=== PATIENT | female | born 1960 | race Caucasian/White ===

== ENCOUNTER 2025-04-12 18:40 | Inpatient (IN) | payer OTHER, MEDICARE, MEDICAID, SELFPAY ==
[2025-04-12] VITALS (8 sets, daily range): BP systolic 114–154; BP diastolic 61–90; PULSE 100–129; RESP 18–24; TEMP 36–36.5; O2SAT 87–96; BMI 41.5
--- NOTE | 2025-04-12 | ECG_ITS ---
Test Reason : PALPITATION Blood Pressure : */* mmHG Vent. Rate : 109 BPM Atrial Rate : 109 BPM P-R Int : 196 ms QRS Dur : 74 ms QT Int : 328 ms P-R-T Axes : 73 49 65 degrees QTcB Int : 441 ms Sinus tachycardia Otherwise normal ECG No previous ECGs available Referred By: Generic ED Physician Electronically Signed By: YANELI MORALES MD
--- NOTE | ~2025-04-12 | XR_ITS ---
CLINICAL HISTORY: SOB 1 view chest x-ray Comparison: None provided Findings: Bilateral pulmonary opacities are nonspecific and may reflect pulmonary edema and pneumonitis. Mild emphysematous changes noted. Borderline cardiomegaly accentuated by AP technique. No definite pneumothorax or pleural effusion with mild elevation of the left hemidiaphragm. Degenerative changes include imaged shoulders and imaged AC joints. IMPRESSION: Mild pulmonary edema and/or pneumonitis. This document has been electronically signed by: Sid Crook MD on 04/12/2025 21:24:32
--- NOTE | ~2025-04-12 | NM_ITS ---
EXAMINATION: NM LUNG PERFUSION HISTORY: elevated d dimer, r/o PE. TECHNIQUE: A pulmonary perfusion scan was performed following the intravenous administration of 4 mCi technetium 99m-MAA. Images were obtained in multiple projections. COMPARISON: Correlation is made with an AP portable view of the chest dated 04/12/2025. FINDINGS: There is global decreased activity in the mid and upper lung zones bilaterally, likely representing emphysema. No segmental or subsegmental perfusion defect is identified. Findings are consistent with a very low probability for pulmonary emboli. NM/NM pul perfusion IMPRESSION: Very low probability for pulmonary emboli. Electronically signed by: Omar Leigh MD 04/13/2025 11:05 AM EDT
--- NOTE | 2025-04-12 19:31 | ED_ITS ---
HPI - General Adult General Chief complaint: Arrhythmia/Palpitations Stated complaint: Anxiety, sob, heart palp, diff getting Rx filled Time Seen by Provider: 04/12/25 19:09 Source: patient Mode of arrival: EMS Limitations: no limitations History of Present Illness ED Provider: Yaniv Perdue PA-C HPI narrative: 64-year-old female with medical history of alcohol use disorder, COPD, HTN, anxiety, depression, PTSD presents to the ED today after experiencing panic attack. Patient says earlier this evening she was experiencing increased stress of her personal life stating that she is living at a [address], and is currently in [facility] which is a program associated with the [place] who was helping her with housing, and treatment for alcohol use disorder. Patient states she recently experienced a relapse drinking alcohol, and her program is placing her in a detox facility in [facility]. Patient said due to the stress she began crying and quickly went into panic attack, hyperventilating and experiencing numbness of the right side of her face. Patient states she drank 1 hour prior to arrival 3 nips of vodka. Patient denies any previous history of alcohol withdrawal seizures. Patient does report she is no longer experiencing numbness of her face, and anxiety is more under control at this time. Additionally, patient states she wanted to come in as she is out of her medication, did not take her hypertension medication today and did not have medication for anxiety today prompting her to seek care in the ED. Denies chest pain, shortness of breath, nausea, headaches, visual changes, abdominal pain, nausea, urinary symptoms, black/tarry stools, denies SI, HI, visual/auditory hallucinations MD complaint: anxiety, meds needed Related Data Allergies Allergy/AdvReac Type Severity Reaction Status Date / Time shellfish derived (shellfish) Allergy Severe Anaphylaxis Verified 04/12/25 18:55 Iodinated Contrast Media (IV Allergy Hives Verified 04/12/25 23:03 Contrast Dye) Review of Systems 2 Review of Systems: CONST: Negative for fever, body aches and chills. HENT: Negative for neck pain/stiffness, headache, congestion, sore throat, swelling. EYES: Negative for discharge/pain or vision changes. RESP: Negative for cough/hemoptysis and shortness of breath. CV: Negative chest pain, difficulty breathing, palpitations. ABD: Negative pain, nausea, vomiting. : Negative increase frequency, dysuria, blood in urine or stool. MUSC: Negative for muscle aches, edema. SKIN: Negative rash, lesions/sores. NEURO: Negative headache, dizziness, weakness. PSYCH: POS increased anxiety Yes all other systems are reviewed and are negative [facility] Past Medical History Attestation statement: The following information was validated with the patient. Source: old records reviewed and nursing notes reviewed Social History Social History Smoked in Last 30 Days: Yes Use of substances other than those prescribed or required for medical reasons: No Advance Directives: No Advance Directives Information Provided: No Do you have a plan to hurt others: No Plan Physical Exam ED Vital Signs: Vital Signs - 24 hr 04/12/25 18:48 04/12/25 19:42 04/12/25 20:05 Temperature 97.7 F Pulse Rate 110 H 107 H Respiratory Rate 18 20 Blood Pressure 134/62 128/72 132/61 Pulse Oximetry 91 L 90 L Oxygen Delivery Method Room Air Room Air 04/12/25 21:12 04/12/25 21:45 04/12/25 22:49 Temperature 96.8 F Pulse Rate 129 H 100 109 H Respiratory Rate 24 H 18 19 Blood Pressure 114/80 Pulse Oximetry 87 L 95 Oxygen Delivery Method Room Air Room Air 04/12/25 23:30 Temperature Pulse Rate Respiratory Rate 21 H Blood Pressure 146/81 H Pulse Oximetry 95 Oxygen Delivery Method Room Air BMI result Body Mass Index 41.5 GENERAL APPEARANCE: ?AxOx4, disheveled appearance, with alcohol odor on breath, no acute distress. HEENT: ?NC, AT. MMM. EOMI, clear conjunctiva, oropharynx clear. NECK: ?Supple without lymphadenopathy.? No stiffness or restricted ROM. HEART:? Tachycardic rate and regular rhythm, normal S1/S2, no m/r/g LUNGS:? CTAB, moving air well. Diminished breath sounds throughout lung freeman ABDOMEN: ?Soft, nontender, nondistended with good bowel sounds heard. EXTREMITIES: ?Without cyanosis, clubbing or edema. NEUROLOGICAL: ?Grossly nonfocal. Alert and oriented, moving all 4 extremities. Observed to ambulate with normal gait. Skin: ?Warm and dry without any rash. Course Reevaluation(s) Reevaluation #1: I Vangie Delarosa PA-C have accepted care of the patient and signed out pending labs, imaging and final disposition. We are initiating treatment for COPD exacerbation, the patient was ambulated, she was 86% on room air, she became profoundly tachycardic. Blood cultures, lactic we will be added. Due to new hypoxia and tachycardia, a dimer was ordered, as well as cardiac enzyme. Chest x-ray already complete. The patient is receiving updrafts, Solu-Medrol. We will be ordering ceftriaxone and azithromycin. Adding 2 g of magnesium as well. Dimer elevated, the patient is now bringing to our attention that she has a contrast dye allergy, she will have a V/Q scan tomorrow Reevaluation #2: At 10:10 p.m. on April 12, a sepsis focused exam was performed. Time: 22:10 Reevaluation #3: First lactic 3.3 we will obtain a 2nd Medications Administered Generic Name Dose Route Start Last Admin Trade Name Freq PRN Reason Stop Dose Admin Azithromycin 500 mg/ Sodium 250 mls @ 125 mls/hr 04/12/25 22:10 04/12/25 23:04 Chloride IV 04/13/25 00:09 125 mls/hr ONCE ONE Administration Discontinued Medications Generic Name Dose Route Start Last Admin Trade Name Freq PRN Reason Stop Dose Admin Amlodipine Besylate 5 mg 04/12/25 19:29 04/12/25 20:05 Amlodipine Besylate 5 Mg Tablet PO 04/12/25 19:30 5 mg ONCE ONE Administration Protocol Ceftriaxone Sodium 2 gm 04/12/25 22:10 04/12/25 22:18 Ceftriaxone Sodium 2 Gm Vial IVPUSH 04/12/25 22:11 2 gm ONCE ONE Administration Albuterol Sulfate 2.5 mg/ 0 mg 04/12/25 21:38 04/12/25 21:43 Albuterol/Ipratropium 3 ml INHALE 04/12/25 21:39 1 dose ONCE ONE Administration Diazepam 2 mg 04/12/25 19:29 04/12/25 20:20 Diazepam 2 Mg Tablet PO 04/12/25 19:30 2 mg ONCE ONE Administration Sodium Chloride 1,000 mls @ 999 mls/hr 04/12/25 22:15 04/12/25 22:28 Ns IV 04/12/25 23:15 999 mls/hr .Q1H1M MARGIE Administration Methylprednisolone Sodium Succinate 125 mg 04/12/25 21:22 04/12/25 21:57 Methylprednisolone Sod Succ 125 Mg/2 Ml Vial IVPUSH 04/12/25 21:23 125 mg ONCE ONE Administration Medical Decision Making Medical Decision Making MDM Narrative: 64-year-old female with medical history of alcohol use disorder, COPD, HTN, anxiety, depression, PTSD presents to the ED today after experiencing panic attack. Patient says earlier this evening she was experiencing increased stress of her personal life stating that she is living at a motel [address], and is currently in [facility] which is a program associated with the [place] who was helping her with housing, and treatment for alcohol use disorder. Patient states she recently experienced a relapse drinking alcohol, and her program is placing her in a detox facility in [facility]. Patient said due to the stress she began crying and quickly went into panic attack, hyperventilating and experiencing numbness of the right side of her face. Patient states she drank 1 hour prior to arrival 3 nips of vodka. Patient denies any previous history of alcohol withdrawal seizures. Patient does report she is no longer experiencing numbness of her face, and anxiety is more under control at this time. Additionally, patient states she wanted to come in as she is out of her medication, did not take her hypertension medication today and did not have medication for anxiety today prompting her to seek care in the ED. Denies SI, HI, auditory/visual hallucinations Patient normotensive 134/62, tachycardic at 110 beats per minute, respiratory rate of 18, 91% on room air, in no acute distress, nontoxic appearing. Physical exam benign, alert and oriented x3, cardiac exam with tachycardic rate, normal rhythm, no murmurs/rubs/gallops, lungs clear to auscultation bilaterally with some diminished breath sounds throughout lung freeman due to COPD. No focal neurological deficits, no speech slurring, no facial drooping, no loss of nasolabial fold, strength 5/5 of upper extremities, strength 5/5 of the lower extremities, face SILT. I do not believe patient isn't alcohol withdrawal, she is not tremulous, no headaches, no nausea vomiting, no diaphoresis, no visual/auditory/tactile hallucinations, sensorium is clear EKG shows tachycardic rate with normal rhythm, no ST-elevation/depression, T- wave abnormalities, initial troponin 7.2. Patient without chest pain. Patient states she had increased anxiety today due to being out of her medication, due to recent relapse of ETOH use, and her [place] program placing her in [place] rehab facility for alcohol use. Patient requesting hypertension medication, anxiety medication that she missed today. Will dose of 5 mg amlodipine, 2 mg diazepam for anxiety. Course 20:32- patient anxiety improved after medication, patient feels safe for discharge for home care. Patient states she has ride [facility]. ETOH level 221. Will obtain CXR to evaluate for cardiopulmonary processes. 21:11- I am considering sepsis at this time, patient ambulated with a tech, tech reported O2 saturation dropped to 86%, heart rate up to 129 while ambulating. Awaiting workup including D-dimer, lactic acid, blood cultures, delta trop, ED bronchial your protocol for possible COPD exacerbation. Patient being signed out to my colleague Sarah Delarosa PA-C who will resume care of this patient. Patient aware. Differential Diagnosis Differential Diagnoses: The differential diagnosis associated with the presentation includes ACS Panic attack Anxiety Depression Alcohol intoxication Alcohol withdrawal Admission/Observation Consideration of admission/observation: Escalation of care including admission/observation considered Lab Data MDM Lab Attestation statement: I reviewed the patient's lab results. 04/12/25 19:56 04/12/25 19:56 Labs: Lab Results 04/12/25 04/12/25 04/12/25 Range/Units 19:22 19:56 21:41 WBC 9.2 (4.8-10.8) X10*3/uL RBC 4.61 (4.20-5.50) X10*6/uL Hgb 14.8 (12.0-16.0) g/dl Hct 43.0 (37.0-47.0) % MCV 93.3 (80.0-98.0) fL MCH 32.1 (27.0-33.0) pg MCHC 34.4 (31.0-35.0) g/dl RDW 13.6 (11.0-16.0) % Plt Count 242 (160-400) X10*3/uL MPV 9.8 (9.4-12.3) fL Immature Gran % (Auto) 0.3 (0.0-0.4) % Neut % (Auto) 77.2 H (45-73) % Lymph % (Auto) 16.5 L (20-40) % [place] % (Auto) 5.4 (2-11) % Eos % (Auto) 0.2 (0-4) % Baso % (Auto) 0.4 (0-2) % Lymph # (Auto) 1.5 (1.2-4.9) X10*3/uL [place] # (Auto) 0.5 (0.1-1.2) X10*3/uL Eos # (Auto) 0.0 (0.0-0.4) X10*3/uL Baso # (Auto) 0.0 (0.0-0.2) X10*3/uL Abs Immat Gran (auto) 0.03 (0.00-0.03) X10*3/uL Absolute Neuts (auto) 7.1 (2.0-8.3) x10*3/uL Absolute Nucleated RBC 0.000 (0.0-0.012) X10*3/uL Nucleated RBC % (auto) 0.0 (0.0-0.2) /100WBC D-Dimer High Sensitivty NG/ML Sodium 143 (135-145) mmol/L Potassium 3.6 (3.3-5.1) mmol/L Chloride 104 (96-108) mmol/L Carbon Dioxide 25 (22-29) mmol/L Anion Gap 18 (12-20) BUN 9 (9-16) mg/dL Creatinine 0.59 (0.5-1.4) mg/dL Estim Creat Clear Calc 129.3 Estimated GFR > 60 Random Glucose 119 H (60-115) mg/dL Lactic Acid 3.3 H* (0.5-2.0) mmol/L Calcium 8.1 L (8.4-10.2) mg/dL Troponin I High Sens 7.2 (<3.5-17.0) ng/L Ethyl Alcohol 221 mg/dL Influenza Type A (PCR) (Negative) Influenza Type B (PCR) (Negative) RSV RNA Qual (PCR) (Negative) SARS-CoV-2 RNA (RT-PCR) (Negative) 04/12/25 04/12/25 Range/Units 22:01 22:31 WBC (4.8-10.8) X10*3/uL RBC (4.20-5.50) X10*6/uL Hgb (12.0-16.0) g/dl Hct (37.0-47.0) % MCV (80.0-98.0) fL MCH (27.0-33.0) pg MCHC (31.0-35.0) g/dl RDW (11.0-16.0) % Plt Count (160-400) X10*3/uL MPV (9.4-12.3) fL Immature Gran % (Auto) (0.0-0.4) % Neut % (Auto) (45-73) % Lymph % (Auto) (20-40) % [place] % (Auto) (2-11) % Eos % (Auto) (0-4) % Baso % (Auto) (0-2) % Lymph # (Auto) (1.2-4.9) X10*3/uL [place] # (Auto) (0.1-1.2) X10*3/uL Eos # (Auto) (0.0-0.4) X10*3/uL Baso # (Auto) (0.0-0.2) X10*3/uL Abs Immat Gran (auto) (0.00-0.03) X10*3/uL Absolute Neuts (auto) (2.0-8.3) x10*3/uL Absolute Nucleated RBC (0.0-0.012) X10*3/uL Nucleated RBC % (auto) (0.0-0.2) /100WBC D-Dimer High Sensitivty 312 NG/ML Sodium (135-145) mmol/L Potassium (3.3-5.1) mmol/L Chloride (96-108) mmol/L Carbon Dioxide (22-29) mmol/L Anion Gap (12-20) BUN (9-16) mg/dL Creatinine (0.5-1.4) mg/dL Estim Creat Clear Calc Estimated GFR Random Glucose (60-115) mg/dL Lactic Acid (0.5-2.0) mmol/L Calcium (8.4-10.2) mg/dL Troponin I High Sens 7.7 (<3.5-17.0) ng/L Ethyl Alcohol mg/dL Influenza Type A (PCR) NEGATIVE (Negative) Influenza Type B (PCR) NEGATIVE (Negative) RSV RNA Qual (PCR) NEGATIVE (Negative) SARS-CoV-2 RNA (RT-PCR) NEGATIVE (Negative) Independent Interpretation I performed an independent interpretation of an: EKG Interpretation: I independently interpreted the EKG as sinus tachycardia, no ST elevation/depression or T-wave abnormality Vent. Rate : 109 BPM Atrial Rate : 109 BPM P-R Int : 196 ms QRS Dur : 74 ms QT Int : 328 ms P-R-T Axes : 73 49 65 degrees QTcB Int : 441 ms Sinus tachycardia External Record Review External record reviewed: Inpatient record, Office record and Outpatient record Chronic Conditions Patient?s care impacted by: Hypertension and Other (Alcohol use disorder, COPD, PTSD, anxiety, depression) Discharge Plan Discharge Clinical Impression: Bronchitis, Hypoxia, Panic attack Patient Disposition: Admitted As Inpatient Print Language: Hungarian
[2025-04-12 19:48] LABS: Troponin-I High Sensitivity 7.2 ng/L (<3.5-17.0)
[2025-04-12 20:02] LABS: Hematocrit 43.0 % (37.0-47.0); Hemoglobin 14.8 g/dl (12.0-16.0); Imm Gran Abs Auto 0.03 X10*3/uL (0.00-0.03); Imm Gran Pct Auto 0.3 % (0.0-0.4); Lymphocytes Absolute Auto 1.5 X10*3/uL (1.2-4.9); Mean Corpuscular HGB Conc 34.4 g/dl (31.0-35.0); Mean Corpuscular Hemoglobin 32.1 pg (27.0-33.0); Mean Corpuscular Volume 93.3 fL (80.0-98.0); NRBC Abs Auto 0.000 X10*3/uL (0.0-0.012); NRBC Pct Auto 0.0 /100WBC (0.0-0.2); Platelet Count 242 X10*3/uL (160-400); Red Blood Count 4.61 X10*6/uL (4.20-5.50); White Blood Count 9.2 X10*3/uL (4.8-10.8)
[2025-04-12 20:15] LABS: Anion Gap 18 (12-20); Blood Urea Nitrogen 9 mg/dL (9-16); Calcium 8.1 mg/dL (8.4-10.2); Carbon Dioxide 25 mmol/L (22-29); Chloride 104 mmol/L (96-108); Creatinine Clr Calc Pharmacy 129.3; Estimated Glomerular Filt Rate > 60; Potassium 3.6 mmol/L (3.3-5.1); Sodium 143 mmol/L (135-145)
[2025-04-12 20:23] LABS: MANUAL DIFF FLAG NO
[2025-04-12] MEDS: Albuterol Sulfate 2.5 MG, Albuterol/Iprat 2.5/0.5MG 3 ML 3 ML INHALE (21:43)
[2025-04-12 22:31] LABS: D Dimer High Sensitivity 312 NG/ML
[2025-04-12 22:35] LABS: Troponin-I High Sensitivity 7.7 ng/L (<3.5-17.0)
--- NOTE | 2025-04-12 22:41 | PC.NURSE ---
PT O2 sats dropped down to 88% on RA while pt lying in bed, pt placed on 2L
[2025-04-12 23:16] LABS: Resp Syncy Virus RNA Qual PCR NEGATIVE (Negative); SARS COV2 PCR INHOUSE NEGATIVE (Negative)
--- NOTE | 2025-04-12 23:41 | PC.NURSE ---
IVF fluids running slow, IVF fluids put on Pump, half of IVF bag at this time with 500 ml left, pt on bedside monitor call mckeon within reach.
--- NOTE | 2025-04-12 23:42 | PC.NURSE ---
PT sating at 91% on 2L NC, provider notified,RT called, pt placed on 4L Oxy mask.
[2025-04-12 23:49] LABS: Reflex Lactate? Lactic Acid Added
[2025-04-13] VITALS (15 sets, daily range): BP systolic 115–195; BP diastolic 61–101; PULSE 103–125; RESP 14–22; TEMP 36.4–36.7; O2SAT 87–96; BMI 39.6
--- NOTE | 2025-04-13 00:14 | P.HPHOSP_ITS ---
History of Present Illness Date of Service: 04/13/25 Attending physician on admission: Jw Mckee Chief Complaint: panic attack Patient is a 64-year-old female with a past medical history significant for alcohol use disorder, HLD, mild COPD, HTN, anxiety, depression, PTSD and morbid obesity, who presented to the ED due to a ?panic attack ?. The patient reported numbness in the right side of her face but then later states that this was untrue. She was tachycardic and tachypneic and hypoxic at 86% on room air with ambulation. The patient denies any cough, shortness of breath, chest pain, nausea, vomiting, abdominal pain or urinary symptoms. She reported that she is going to be sent to a detox center in [facility] which caused her to become anxious and have a panic attack with reported right-sided face numbness. The patient then denies at this ever happened. She reports that she consumes regular alcohol, multiple nips per day, consumes 3 earlier today with some additional vodka. She denies any history of alcohol withdrawal seizures. She also denies any drug use. She has been working on cutting back smoking and is currently smoking 1/2 pack per day. The patient is a poor historian. Review of Systems 2 Constitutional: Constitutional: Denies chills, Denies fatigue, Denies fever(s) and Denies headache(s) Eyes: Eyes: Denies change in vision ENT: Denies headache(s), Denies nasal congestion, Denies nasal discharge and Denies sore throat Cardiovascular: Cardiovascular: Denies chest pain, Denies rapid heart rate, Denies leg edema, Denies lightheadedness and Reports dyspnea Respiratory: Respiratory: Reports cough, Reports dyspnea and Reports wheezing Gastrointestinal: Gastrointestinal: Denies abdominal pain, Denies GI cramping, Denies diarrhea, Denies nausea and Denies vomiting Genitourinary: Genitourinary: Denies difficulty voiding, Denies dysuria and Denies urinary urgency Musculoskeletal: Musculoskeletal: Denies myalgias Integumentary/Breasts: Skin/Breast: Denies rash Neurologic: Denies confusion and Denies headache(s) Psychiatric: Psychiatric: Reports anxiety and Denies confusion Endocrine: Endocrine: Denies fatigue Hematologic/Lymphatic: Hematologic/Lymphatic: Denies easy bleeding and Denies easy bruising Allergic/Immunologic: Allergic/Immunologic: Reports wheezing PMFSH Medical History (Updated 04/13/25 @ 00:58 by Demetra Rome PA-C) Morbid obesity due to excess calories PTSD (post-traumatic stress disorder) Depression Anxiety HTN (hypertension) COPD (chronic obstructive pulmonary disease) HLD (hyperlipidemia) Alcohol use disorder Functional capacity: independent ambulation Social History Patient Tobacco Use Status: Current everyday Tobacco user Meds Allergies Allergy/AdvReac Type Severity Reaction Status Date / Time shellfish derived (shellfish) Allergy Severe Anaphylaxis Verified 04/12/25 18:55 Iodinated Contrast Media (IV Allergy Hives Verified 04/12/25 23:03 Contrast Dye) Active Medications: Current Medications Acetaminophen (Acetaminophen 325 Mg Tablet) 975 mg PO Q6H PRN PRN Reason: Pain, Mild 1-3,fever,headache Calcium Carbonate (Calcium Carbonate 750 Mg Tab.Chew) 750 mg PO Q4H PRN PRN Reason: Heartburn Levalbuterol HCl 1.25 mg/ (Ipratropium [place] 0.5 mg) 0 mg INHALE RQ4H WHILE AWAKE MARGIE Enoxaparin Sodium (Enoxaparin Sodium 40 Mg/0.4 Ml Syringe) 40 mg SUBCUT Q24H MARGIE Magnesium Sulfate (Magnesium Sulfate/H2o) 2 gm in 50 mls @ 25 mls/hr IV ONCE ONE Stop: 04/13/25 01:34 Doxycycline Hyclate 100 mg/ (Sodium Chloride) 250 mls @ 166.67 mls/hr IV BID MARGIE Magnesium Hydroxide (Milk Of Magnesia 30 Ml Oral.Susp) 30 ml PO DAILY PRN PRN Reason: Constipation Melatonin (Melatonin 3 Mg Tablet) 6 mg PO BEDTIME PRN PRN Reason: Insomnia Methylprednisolone Sodium Succinate (Methylprednisolone Sod Succ 125 Mg/2 Ml Vial) 60 mg IVPUSH BID MARGIE Ondansetron HCl (Ondansetron Hcl 4 Mg/2 Ml Vial) 4 mg IVPUSH Q8H PRN PRN Reason: Nausea and Vomiting Oxycodone HCl (Oxycodone Hcl Immed Release 5 Mg Tablet) 5 mg PO Q6H PRN PRN Reason: Pain, Severe (Pain Scale 7-10) Sodium Chloride (0.9 % Sodium Chloride Flush 3 Ml Syringe) 3 ml IVFLUSH QSHIFT MARGIE Tramadol HCl (Tramadol Hcl 50 Mg Tablet) 50 mg PO Q6H PRN PRN Reason: Pain, Moderate(Pain Scale 4-6) Physical Exam 2 Vital Signs and Narrative: Vital Signs: Last Vital Signs Temp 96.8 F 04/12/25 22:49 Pulse 109 H 04/12/25 22:49 Resp 21 H 04/12/25 23:30 BP 146/81 H 04/12/25 23:30 Pulse Ox 95 04/12/25 23:30 O2 Del Method Room Air 04/12/25 23:30 BMI result Body Mass Index 41.5 General: AOx3, no acute distress Resp: CTA bilaterally, no active wheezing, no crackles or rhonchi CVS: S1, S2, RRR GI: +BS, NT, no distention Skin: Warm, dry Neuro: Cranial nerves II-XII grossly intact bilaterally. Motor grossly intact bilaterally Extremities: No pitting edema Psych: Appropriate affect Const: General: No confusion Orientation/consciousness: No confusion Neuro: General: No confusion Results Labs 04/12/25 19:56 04/12/25 19:56 Labs: Laboratory Results - last 24 hr 04/12/25 04/12/25 04/12/25 19:56 21:41 22:01 MCV 93.3 MCH 32.1 MCHC 34.4 RDW 13.6 Plt Count 242 MPV 9.8 Immature Gran % (Auto) 0.3 Neut % (Auto) 77.2 H Lymph % (Auto) 16.5 L [place] % (Auto) 5.4 Eos % (Auto) 0.2 Baso % (Auto) 0.4 Lymph # (Auto) 1.5 [place] # (Auto) 0.5 Eos # (Auto) 0.0 Baso # (Auto) 0.0 Abs Immat Gran (auto) 0.03 Absolute Neuts (auto) 7.1 Absolute Nucleated RBC 0.000 Nucleated RBC % (auto) 0.0 D-Dimer High Sensitivty 312 Anion Gap 18 Estim Creat Clear Calc 129.3 Estimated GFR > 60 Random Glucose 119 H Lactic Acid 3.3 H* Calcium 8.1 L Ethyl Alcohol 221 Influenza Type A (PCR) Influenza Type B (PCR) RSV RNA Qual (PCR) SARS-CoV-2 RNA (RT-PCR) 04/12/25 22:31 MCV MCH MCHC RDW Plt Count MPV Immature Gran % (Auto) Neut % (Auto) Lymph % (Auto) [place] % (Auto) Eos % (Auto) Baso % (Auto) Lymph # (Auto) [place] # (Auto) Eos # (Auto) Baso # (Auto) Abs Immat Gran (auto) Absolute Neuts (auto) Absolute Nucleated RBC Nucleated RBC % (auto) D-Dimer High Sensitivty Anion Gap Estim Creat Clear Calc Estimated GFR Random Glucose Lactic Acid Calcium Ethyl Alcohol Influenza Type A (PCR) NEGATIVE Influenza Type B (PCR) NEGATIVE RSV RNA Qual (PCR) NEGATIVE SARS-CoV-2 RNA (RT-PCR) NEGATIVE Assessment and Plan (1) Acute hypoxic respiratory failure: Status: Acute (2) Sepsis: Status: Acute (3) COPD with acute exacerbation: Status: Acute (4) Acute lactic acidosis: Status: Acute (5) Elevated d-dimer: Status: Acute (6) Alcohol use disorder: Status: Acute (7) Anxiety: Status: Acute (8) Morbid obesity due to excess calories: Status: Acute (9) Tobacco abuse: Status: Acute Plan Patient is a 64-year-old female with a past medical history significant for alcohol use disorder, HLD, mild COPD, HTN, anxiety, depression, PTSD and morbid obesity, who presented to the ED due to a ?panic attack ?. Acute hypoxic respiratory failure and sepsis secondary to COPD with acute exacerbation - WBC normal, tachycardic and tachypneic, hypoxic 86% on room air with ambulation, lactic acid 3.3, repeat 2.2, blood cultures x2 pending, not severe sepsis - chest x-ray with mild pulmonary edema and/or pneumonitis - D-dimer elevated at 312, IV contrast allergy therefore V/Q scan we will need to be done in a.m. - BNP 12 - COVID/flu/RSV negative - EKG with sinus tachycardia, troponin normal - given Solu-Medrol, magnesium, DuoNeb, ceftriaxone and azithromycin in ED - continue Solu-Medrol 60 mg b.i.d., levalbuterol/ipratropium q.4h while awake and doxycycline b.i.d. - titrate oxygen as needed - monitor CBC and BMP Acute lactic acidosis, secondary to hypoxia - lactic acid 3.3, repeat 2.2 - given 1 L IV fluids in ED, give additional liter now Elevated D-dimer - D-dimer 312 - patient has IV contrast allergy, we will need to wait for V/Q scan in a.m. Alcohol use disorder - alcohol level 221 - CIWA q.4h - phenobarb started due to elevated CIWA score - addiction med consult - thiamine 100 mg IV x1 followed by PO daily, multivitamin and folic acid - seizure precautions Anxiety - patient reported panic attack prior to arrival - once no longer under the influence, re-evaluate - consider psych consult Tobacco use disorder - smoking cessation encouraged Morbid obesity - BMI 41.5 - weight loss encouraged Med rec pending Full code VTE prophylaxis: Lovenox Patient with sepsis secondary to acute COPD exacerbation, requiring admission for at least 2 midnights stay for IV steroids, breathing treatments, antibiotics and monitoring. Quality Stroke Does the patient have a stroke diagnosis?: No VTE Prior VTE?: No VTE Risk Level:: Medical - moderate - high VTE Device Contraindication: Treatment Not Indicated VTE Drug Contraindication: N/A - Med Ordered
[2025-04-13] MEDS: guaiFEN/Codeine SF 200/20/10ML 10 ML LIQUID PO (00:28)
[2025-04-13] MEDS: Magnesium Sulfate/H2O 2 GM/50 ML PIGGYBACK IV (00:28)
[2025-04-13 00:51] LABS: B Type Natriuretic Peptide 12 pg/mL (<100)
[2025-04-13 00:54] LABS: ~Lactic Acid-LAB USE ONLY 2.2 mmol/L (0.5-2.0)
[2025-04-13] MEDS: Lactated Ringers 1,000 ML 999 ML IV (01:23)
[2025-04-13] MEDS: PHENobarbitaL sodium 130 MG/ML IM ONCE 195 MG IM (01:23)
[2025-04-13] MEDS: Thiamine HCL 100 MG in 0.9 % Sodium Chloride 100 ML 202 MG IV ×2 (01:23→07:09)
[2025-04-13 02:30] LABS: Reflex Lactate? 2 Y
[2025-04-13 03:10] LABS: Hematocrit 42.6 % (37.0-47.0); Hemoglobin 14.5 g/dl (12.0-16.0); Imm Gran Abs Auto 0.05 X10*3/uL (0.00-0.03); Imm Gran Pct Auto 0.7 % (0.0-0.4); Lymphocytes Absolute Auto 0.4 X10*3/uL (1.2-4.9); MANUAL DIFF FLAG SCAN; Mean Corpuscular HGB Conc 34.0 g/dl (31.0-35.0); Mean Corpuscular Hemoglobin 31.9 pg (27.0-33.0); Mean Corpuscular Volume 93.6 fL (80.0-98.0); NRBC Abs Auto 0.000 X10*3/uL (0.0-0.012); NRBC Pct Auto 0.0 /100WBC (0.0-0.2); Platelet Count 219 X10*3/uL (160-400); Red Blood Count 4.55 X10*6/uL (4.20-5.50); SCAN SMEAR FLAG 1; White Blood Count 7.0 X10*3/uL (4.8-10.8)
[2025-04-13] MEDS: PHENobarbitaL sodium 130 MG/ML VIAL IM Q3Hx2 143 MG IM ×2 (03:14→07:07)
[2025-04-13 03:24] LABS: Anion Gap 17 (12-20); Blood Urea Nitrogen 10 mg/dL (9-16); Calcium 8.1 mg/dL (8.4-10.2); Carbon Dioxide 25 mmol/L (22-29); Chloride 104 mmol/L (96-108); Creatinine Clr Calc Pharmacy 146.7; Estimated Glomerular Filt Rate > 60; Potassium 3.7 mmol/L (3.3-5.1); Sodium 142 mmol/L (135-145)
[2025-04-13 03:30] LABS: ~Lactic Acid-LAB USE ONLY 3.5 mmol/L (0.5-2.0)
--- NOTE | 2025-04-13 04:56 | PC.NURSE ---
Assumed care of pt at 2340 from Maki DON and Grecia SIMS. Pt laying in bed IV fluids and abx running at that time, Pt c/o cough, requesting phone to call son and food. Respiratory in to see pt and change Nasal cannula to Oxymask at 4L, spo2 improved 90-95% LARISA Juan at bedside discussing plan of care with pt and admission. Magnesium and guafinessin with codeine. Pt medicated as ordered and t/w brought pt sandwich. IV fluids completed and vitals taken following sepsis protocol. Demetra PERES(hospitalist) at bedside to see patient for admission. Pt scoring 9 on CIWA scale for tremor, anxiety and nausea, Demetra notified and phenobarb protocol initiated, thiamine ordered. All medications administered. Pt endorses drinking 6-`10 nips of liqour/day and yesterday drinking unknown amount of vodka. 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 Pt reports that she is working on getting into a program back home in [facility]. Pt declined referral for addiction medicine. Repeat lactic ordered and elevated 1 liter of LR ordered and administered. 2 BP's obtained and documented. Pt requesting something to help sleep, melatonin administered. Pt independent to bedside commode. Call mckeon within reach Awaiting bed on the floor. Plan of care ongoing.
--- NOTE | 2025-04-13 05:34 | PM.EVENT ---
Event Note Date of Service: 04/13/25 Event Note: lactic acid continues to increase, 3.3 to 2.2, now 3.5. BP stable. has received 2L IVF. suspect increase in lactic acid is due to etoh abuse and thiamine deficiency. pt also received albuterol in ED. will give additional 100mg IV thiamine for 200mg IV total and start LR 75ml/hr. discussed managment with Dr Mckee Time Spent With Patient Time: Total time managing care of this patient today ____ minutes.
[2025-04-13] MEDS: Lactated Ringers 1,000 ML 75 ML IVCONT ×2 (07:21→21:50)
[2025-04-13] MEDS: 0.9 % Sodium Chloride Flush 3 ML SYRINGE IVFLUSH ×2 (07:22→20:16)
--- NOTE | 2025-04-13 09:07 | PC.NURSE ---
Assisted from ED stretcher to hospital bed. Continue to await admission bed assignment. Care assumed by this RN at 09:00 AM. Received report from Judah Gauthier RN.
[2025-04-13] MEDS: levalbuterol HCL 1.25 MG, Ipratropium Bromide 0.5 MG INHALE ×3 (09:08→19:23)
--- NOTE | 2025-04-13 09:28 | PC.NURSE ---
Oxygen turned off by respiratory therapist at this time: 09:24 AM. Stable on equipment monitor phototypesetting at this time. Pulse oximeter in place. Care ongoing by this RN.
[2025-04-13] MEDS: Nicotine 14 MG PATCH.TD24 TRANSDERMA (10:10)
--- NOTE | 2025-04-13 10:28 | PC.NURSE ---
Away for nuclear medicine study. Transported by ED Transport team. Awaiting return. Pt states that I forgot to mention that I take Gabapentin 800mg 3 times per day, and I need Lorazepam or something for anxiety .
--- NOTE | 2025-04-13 11:39 | PC.NURSE ---
Pharmacy department (per Jil Robin) stated that they faxed a medication list request to [facility], awaiting response from [facility].
--- NOTE | 2025-04-13 11:44 | PHA.MEDREC ---
Addendum entered by Manjeet Francis mike 04/13/25 18:30: Med rec reviewed Addendum entered by Ike Mena 04/13/25 18:00: Got med list from [facility] and spoke with pt again to confirm she is taking those medications; I added what I confirmed with the pt. Original Note: Pharmacy Consult ? Medication Reconciliation Pharmacy has completed the medication reconciliation. [facility] Associate Teller was able to confirm other meds but we have not received a med list from [facility] yet. Nursing confirmed meds already in chart. Pt states she has not started Prednisone yet.
--- NOTE | 2025-04-13 12:15 | PC.NURSE ---
Dr. Mullins aware of patient's elevated BP. Baseline heart rate has been 110s, currently 120s after most recent breathing treatment.
--- NOTE | 2025-04-13 14:41 | MHC.CM.PN ---
pt is from [facility] she has been in the [facility] for 18 months she had been a wait list for a rejhab program her plan is to home to [place] she lives with her son she may need transportation assistance [facility]
--- NOTE | 2025-04-13 19:35 | HO.ADDICT_ITS ---
History of Present Illness Date of Service: 04/13/2025 Chief Complaint: COPD Exacerbation Reason for Consult: AUD Sources of Information: patient interviewed and chart reviewed HPI Narrative: Patient is a 64 year old female with medical history including AUD, COPD, HTN, and PTSD. Currently medically admitted with COPD exacerbation and acute alcohol withdrawal. Patient seen in room 371 with Recovery Support RN. She is awake, alert, pleasant and engaged in interview. She reports she is from [place], [place], but has been staying in [facility] for the past 18 months after being in treatment for AUD. Most recently she has been residing at [facility], until one week ago when she reports she left. She was planning to admit herself to [place] in [facility] for withdrawal management, however ended up here following what sounds like a panic attack. She reports many year history of alcohol use, which intensified after her sustained a head injury and had to reside in a SNF for 12 years prior to his 5 years ago. She reports history of admission to ATS facilities (usually the [place]) longest period in recovery 12 months (while living out here). States she began drinking again 6 months ago once she moved onto transitional housing. She also reports that around this time she stopped seeing her therapist and a seasonal tax preparer who she had been seeing with regularity. Denies any history of CHELSEA Currently, withdrawal sx are much improved. Denies any symptoms aside from anxiety, which is chronic. CIWA scores have been low 3,2 Labs reviewed Review of Systems Constitutional: Reports as per HPI and Reports no additional constitutional complaints Diagnostics Vital Signs (24Hr): Vital Signs - 24 hr 04/12/25 19:42 04/12/25 20:05 04/12/25 21:12 Temperature Pulse Rate 107 H 129 H Respiratory Rate 20 24 H Blood Pressure 128/72 132/61 Pulse Oximetry 90 L 87 L Oxygen Delivery Method Room Air Room Air Oxygen Flow Rate 04/12/25 21:45 04/12/25 22:49 04/12/25 23:30 Temperature 96.8 F Pulse Rate 100 109 H Respiratory Rate 18 19 21 H Blood Pressure 114/80 146/81 H Pulse Oximetry 95 95 Oxygen Delivery Method Room Air Room Air Oxygen Flow Rate 04/13/25 00:22 04/13/25 00:39 04/13/25 02:34 Temperature 98.0 F Pulse Rate 112 H 111 H 109 H Respiratory Rate 14 20 15 Blood Pressure 120/75 130/84 148/63 H Pulse Oximetry 90 L 92 91 L Oxygen Delivery Method Oxymask Oxymask Oxymask Oxygen Flow Rate 4 4 4 04/13/25 02:54 04/13/25 03:14 04/13/25 07:15 Temperature Pulse Rate 110 H 112 H 112 H Respiratory Rate 14 15 16 Blood Pressure 144/61 H 141/101 H 152/72 H Pulse Oximetry 91 L 91 L 93 Oxygen Delivery Method Oxymask Oxymask Oxymask Oxygen Flow Rate 4 4 4 04/13/25 08:02 04/13/25 09:13 04/13/25 11:40 Temperature 98 F Pulse Rate 112 H 113 H 112 H Respiratory Rate 20 18 22 H Blood Pressure Pulse Oximetry 87 L Oxygen Delivery Method Room Air Oxygen Flow Rate 04/13/25 12:12 04/13/25 12:31 04/13/25 12:48 Temperature 98.1 F Pulse Rate 125 H 125 H Respiratory Rate 18 Blood Pressure 195/99 H 195/99 H 195/99 H Pulse Oximetry 93 Oxygen Delivery Method Room Air Oxygen Flow Rate 04/13/25 13:30 04/13/25 14:16 Temperature 97.5 F Pulse Rate 103 H 110 H Respiratory Rate 20 18 Blood Pressure 115/95 H 162/73 H Pulse Oximetry 92 94 Oxygen Delivery Method Room Air Room Air Oxygen Flow Rate BMI result Body Mass Index 39.6 Labs 04/13/25 03:03 04/13/25 03:03 Labs: Laboratory Results - last 48 hr 04/12/25 04/12/25 04/12/25 19:22 19:56 21:41 WBC 9.2 RBC 4.61 Hgb 14.8 Hct 43.0 MCV 93.3 MCH 32.1 MCHC 34.4 RDW 13.6 Plt Count 242 MPV 9.8 Immature Gran % (Auto) 0.3 Neut % (Auto) 77.2 H Lymph % (Auto) 16.5 L [place] % (Auto) 5.4 Eos % (Auto) 0.2 Baso % (Auto) 0.4 Lymph # (Auto) 1.5 [place] # (Auto) 0.5 Eos # (Auto) 0.0 Baso # (Auto) 0.0 Abs Immat Gran (auto) 0.03 Absolute Neuts (auto) 7.1 Absolute Nucleated RBC 0.000 Nucleated RBC % (auto) 0.0 Smear Tech's Comments D-Dimer High Sensitivty Sodium 143 Potassium 3.6 Chloride 104 Carbon Dioxide 25 Anion Gap 18 BUN 9 Creatinine 0.59 Estim Creat Clear Calc 129.3 Estimated GFR > 60 Random Glucose 119 H Lactic Acid 3.3 H* Lactic Acid F/U @ 2Hr Lactic Acid F/U @ 4Hr Calcium 8.1 L Troponin I High Sens 7.2 B-Natriuretic Peptide Ethyl Alcohol 221 Influenza Type A (PCR) Influenza Type B (PCR) RSV RNA Qual (PCR) SARS-CoV-2 RNA (RT-PCR) 04/12/25 04/12/25 04/13/25 22:01 22:31 00:17 WBC RBC Hgb Hct MCV MCH MCHC RDW Plt Count MPV Immature Gran % (Auto) Neut % (Auto) Lymph % (Auto) [place] % (Auto) Eos % (Auto) Baso % (Auto) Lymph # (Auto) [place] # (Auto) Eos # (Auto) Baso # (Auto) Abs Immat Gran (auto) Absolute Neuts (auto) Absolute Nucleated RBC Nucleated RBC % (auto) Smear Tech's Comments D-Dimer High Sensitivty 312 Sodium Potassium Chloride Carbon Dioxide Anion Gap BUN Creatinine Estim Creat Clear Calc Estimated GFR Random Glucose Lactic Acid Lactic Acid F/U @ 2Hr 2.2 H* Lactic Acid F/U @ 4Hr Calcium Troponin I High Sens 7.7 B-Natriuretic Peptide 12 Ethyl Alcohol Influenza Type A (PCR) NEGATIVE Influenza Type B (PCR) NEGATIVE RSV RNA Qual (PCR) NEGATIVE SARS-CoV-2 RNA (RT-PCR) NEGATIVE 04/13/25 03:03 WBC 7.0 RBC 4.55 Hgb 14.5 Hct 42.6 MCV 93.6 MCH 31.9 MCHC 34.0 RDW 13.5 Plt Count 219 MPV 9.9 Immature Gran % (Auto) 0.7 H Neut % (Auto) 92.3 H Lymph % (Auto) 6.0 L [place] % (Auto) 0.6 L Eos % (Auto) 0.0 Baso % (Auto) 0.4 Lymph # (Auto) 0.4 L [place] # (Auto) 0.0 L Eos # (Auto) 0.0 Baso # (Auto) 0.0 Abs Immat Gran (auto) 0.05 H Absolute Neuts (auto) 6.5 Absolute Nucleated RBC 0.000 Nucleated RBC % (auto) 0.0 Smear Tech's Comments VERIFIED D-Dimer High Sensitivty Sodium 142 Potassium 3.7 Chloride 104 Carbon Dioxide 25 Anion Gap 17 BUN 10 Creatinine 0.52 Estim Creat Clear Calc 146.7 Estimated GFR > 60 Random Glucose 205 H Lactic Acid Lactic Acid F/U @ 2Hr Lactic Acid F/U @ 4Hr 3.5 H* Calcium 8.1 L Troponin I High Sens B-Natriuretic Peptide Ethyl Alcohol Influenza Type A (PCR) Influenza Type B (PCR) RSV RNA Qual (PCR) SARS-CoV-2 RNA (RT-PCR) Imaging Radiology Impressions: ITS Impressions Pulmonary Perfusion Imaging 04/13/25 08:53 IMPRESSION: Very low probability for pulmonary emboli. Electronically signed by: Omar Leigh MD 04/13/2025 11:05 AM EDT RP Mental Status Exam Mental Status Exam Patient Appearance: Well Grooomed Level of Consciousness: Awake, Appropriate and Alert Patient Behavior: Appropriate and Talkative Affect Description: Calm Speech Pattern: Clear Hallucinations: None Delusions: Not Present Thought Process: Intact Thought Content: positive for Intact and positive for Circumstantial Judgement: Good Medications Medications Current Medications Acetaminophen (Acetaminophen 325 Mg Tablet) 975 mg PO Q6H PRN PRN Reason: Pain, Mild 1-3,fever,headache Aspirin (Aspirin Enteric Coated 81 Mg Tablet.Dr) 81 mg PO DAILY [facility] Atorvastatin Calcium (Atorvastatin Calcium 80 Mg Tablet) 80 mg PO DAILY [facility] Calcium Carbonate (Calcium Carbonate 750 Mg Tab.Chew) 750 mg PO Q4H PRN PRN Reason: Heartburn Levalbuterol HCl 1.25 mg/ (Ipratropium [place] 0.5 mg) 0 mg INHALE RQ4H WHILE AWAKE [facility] Last Admin: 04/13/25 19:23 Dose: 1 dose Enoxaparin Sodium (Enoxaparin Sodium 40 Mg/0.4 Ml Syringe) 40 mg SUBCUT Q12H MARGIE Last Admin: 04/13/25 10:10 Dose: 40 mg Folic Acid (Folic Acid 1 Mg Tablet) 1 mg PO DAILY [facility] Stop: 04/16/25 08:59 Last Admin: 04/13/25 10:09 Dose: 1 mg Furosemide (Furosemide 20 Mg Tablet) 20 mg PO DAILY [facility]; Protocol Last Admin: 04/13/25 12:31 Dose: 20 mg Gabapentin (Gabapentin 400 Mg Capsule) 800 mg PO TID [facility] Last Admin: 04/13/25 15:07 Dose: 800 mg Doxycycline Hyclate 100 mg/ (Sodium Chloride) 250 mls @ 166.67 mls/hr IV BID [facility] Last Infusion: 04/13/25 12:46 Dose: Infused Lactated Ringer's (Lr) 1,000 mls @ 75 mls/hr IVCONT .[id number] [facility] Last Infusion: 04/13/25 11:16 Dose: 75 mls/hr Lorazepam (Lorazepam 1 Mg Tablet) 1 mg PO BID [facility] Last Admin: 04/13/25 11:55 Dose: 1 mg Magnesium Hydroxide (Milk Of Magnesia 30 Ml Oral.Susp) 30 ml PO DAILY PRN PRN Reason: Constipation Melatonin (Melatonin 3 Mg Tablet) 6 mg PO BEDTIME PRN PRN Reason: Insomnia Last Admin: 04/13/25 03:15 Dose: 6 mg Methylprednisolone Sodium Succinate (Methylprednisolone Sod Succ 125 Mg/2 Ml Vial) 62.5 mg IVPUSH BID [facility] Last Admin: 04/13/25 10:10 Dose: 62.5 mg Multivitamins/Vitamin C (Multivitamin Tablet) 1 tab PO DAILY [facility] Stop: 04/16/25 08:59 Last Admin: 04/13/25 10:09 Dose: 1 tab Naltrexone HCl (Naltrexone Hcl 50 Mg Tablet) 50 mg PO DAILY [facility] Nicotine (Nicotine 14 Mg Patch.Td24) 14 mg TRANSDERMA DAILY [facility] Last Admin: 04/13/25 10:10 Dose: 14 mg Ondansetron HCl (Ondansetron Hcl 4 Mg/2 Ml Vial) 4 mg IVPUSH Q8H PRN PRN Reason: Nausea and Vomiting Oxycodone HCl (Oxycodone Hcl Immed Release 5 Mg Tablet) 5 mg PO Q6H PRN PRN Reason: Pain, Severe (Pain Scale 7-10) Pharmacy Consult (Consult Rx Etoh Phenob Im/Po) 1 each MISCELLANE ONCE PRN; Protocol PRN Reason: Consult order Phenobarbital (Phenobarbital 15 Mg Tablet) 45 mg PO BID [facility]; Protocol Stop: 04/14/25 21:01 Last Admin: 04/13/25 12:48 Dose: 45 mg Phenobarbital (Phenobarbital 15 Mg Tablet) 15 mg PO BID [facility]; Protocol Stop: 04/16/25 21:01 Phenobarbital (Phenobarbital 15 Mg Tablet) 15 mg PO DAILY MARGIE; Protocol Stop: 04/18/25 09:01 Sodium Chloride (0.9 % Sodium Chloride Flush 3 Ml Syringe) 3 ml IVFLUSH QSHIFT MARGIE Last Admin: 04/13/25 15:10 Dose: Not Given Thiamine HCl (Thiamine Hcl 100 Mg Tablet) 100 mg PO DAILY MARGIE Stop: 04/16/25 08:59 Last Admin: 04/13/25 10:11 Dose: Not Given Tramadol HCl (Tramadol Hcl 50 Mg Tablet) 50 mg PO Q6H PRN PRN Reason: Pain, Moderate(Pain Scale 4-6) Last Admin: 04/13/25 10:10 Dose: 50 mg Allergies Allergies Allergy/AdvReac Type Severity Reaction Status Date / Time shellfish derived (shellfish) Allergy Severe Anaphylaxis Verified 04/12/25 18:55 Iodinated Contrast Media (IV Allergy Hives Verified 04/12/25 23:03 Contrast Dye) Assessment & Plan Assessment & Plan (1) Alcohol use disorder: Status: Acute Code(s): F10.90 - Alcohol use, unspecified, uncomplicated Assessment and Plan: * pheno taper in place * thiamine and folic acid * LFTs and Mg ordered with AM labs * Recovery Support RN to follow up with resources in patients area as she plans to return to [facility] discharge Total time managing care of this patient today __40__ minutes. PMFSH Past Medical History Medical History Morbid obesity due to excess calories PTSD (post-traumatic stress disorder) Depression Anxiety HTN (hypertension) COPD (chronic obstructive pulmonary disease) HLD (hyperlipidemia) Alcohol use disorder Social History Social History Household Members: None and Other Household Members Other:: Staying at [address] in [place] before Housing: Homeless Patient Tobacco Use Status: Current everyday Tobacco user Tobacco use type: Cigarette e-Cigarette/Vaping Use: Former Use service: No
[2025-04-14 03:25] VITALS: BP 142/68; PULSE 106; RESP 18; TEMP 36.4; O2SAT 92
[2025-04-14 05:47] VITALS: BMI 39.9
[2025-04-14 05:57] LABS: MANUAL DIFF FLAG NO
[2025-04-14 06:08] LABS: Hematocrit 38.8 % (37.0-47.0); Hemoglobin 13.0 g/dl (12.0-16.0); Imm Gran Abs Auto 0.06 X10*3/uL (0.00-0.03); Imm Gran Pct Auto 0.6 % (0.0-0.4); Lymphocytes Absolute Auto 0.4 X10*3/uL (1.2-4.9); Mean Corpuscular HGB Conc 33.5 g/dl (31.0-35.0); Mean Corpuscular Hemoglobin 31.4 pg (27.0-33.0); Mean Corpuscular Volume 93.7 fL (80.0-98.0); NRBC Abs Auto 0.000 X10*3/uL (0.0-0.012); NRBC Pct Auto 0.0 /100WBC (0.0-0.2); Platelet Count 207 X10*3/uL (160-400); Red Blood Count 4.14 X10*6/uL (4.20-5.50); White Blood Count 9.8 X10*3/uL (4.8-10.8)
[2025-04-14 06:23] LABS: Albumin Level 4.1 g/dL (3.5-5.0); Alkaline Phosphatase 106 U/L (39-117); Anion Gap 14 (12-20); Aspartate Amino Transferase 35 U/L (5-31); Blood Urea Nitrogen 13 mg/dL (9-16); Calcium 8.9 mg/dL (8.4-10.2); Carbon Dioxide 28 mmol/L (22-29); Chloride 102 mmol/L (96-108); Creatinine Clr Calc Pharmacy 128.6; Estimated Glomerular Filt Rate > 60; Magnesium 1.9 mg/dL (1.6-2.6); Potassium 3.9 mmol/L (3.3-5.1); Sodium 140 mmol/L (135-145); Total Protein 6.6 g/dL (6.5-8.0)
[2025-04-14 06:43] LABS: Alanine Aminotransferase 37 U/L (0-31)
[2025-04-14 07:35] VITALS: BP 140/70; PULSE 102; RESP 18; TEMP 36.8; O2SAT 93
[2025-04-14] MEDS: Aspirin Enteric Coated 81 MG TABLET.DR PO (07:58)
[2025-04-14] MEDS: Nicotine 14 MG PATCH.TD24 TRANSDERMA (07:59)
[2025-04-14] MEDS: 0.9 % Sodium Chloride Flush 3 ML SYRINGE IVFLUSH (08:12)
[2025-04-14] MEDS: levalbuterol HCL 1.25 MG, Ipratropium Bromide 0.5 MG INHALE ×2 (08:25→11:44)
[2025-04-14 08:27] VITALS: PULSE 102; RESP 18; O2SAT 93
--- NOTE | 2025-04-14 08:32 | PM.DS ---
DS: Providers Provider Date of Service: 04/14/25 Date of admission: 04/13/25 00:06 Date of discharge: 04/14/25 Primary care physician: Unknown Physician Consults: 04/13/25 00:44 Addiction Medicine Provider Routine Consulting Provider: Addiction Covering Reason for consultation: etoh Has provider been notified: No 04/13/25 11:36 Consult to Psychiatry Routine Consulting Provider: [facility] Psych Covering Reason for consultation: decompensated anxiety ; panic attack DS: Diagnosis Discharge Diagnosis (1) COPD with acute exacerbation: Status: Acute (2) Alcohol use disorder: Status: Acute DS: Summary Hospital Course Hospital Course: HPI as per admitting provider: Patient is a 64-year-old female with a past medical history significant for alcohol use disorder, HLD, mild COPD, HTN, anxiety, depression, PTSD and morbid obesity, who presented to the ED due to a ?panic attack ?. The patient reported numbness in the right side of her face but then later states that this was untrue. She was tachycardic and tachypneic and hypoxic at 86% on room air with ambulation. The patient denies any cough, shortness of breath, chest pain, nausea, vomiting, abdominal pain or urinary symptoms. She reported that she is going to be sent to a detox center in [facility] which caused her to become anxious and have a panic attack with reported right-sided face numbness. The patient then denies at this ever happened. She reports that she consumes regular alcohol, multiple nips per day, consumes 3 earlier today with some additional vodka. She denies any history of alcohol withdrawal seizures. She also denies any drug use. She has been working on cutting back smoking and is currently smoking 1/2 pack per day. The patient is a poor historian. Hospital course: Patient was admitted with IV steroids, scheduled DuoNebs with significant improvement in breathing and she was maintaining normal oxygen saturation prior to discharge. Patient was initiated on phenobarb protocol for alcohol use disorder. Addiction Team was consulted during hospital course > Recovery Support RN to follow up with resources in patients area as she plans to return to [facility] discharge . Patient reportedly had a panic attack prior to arrival to the ER. Her mood was stable throughout hospital course. Recommend outpatient follow-up with Psychiatry. Status at Discharge Functional status at discharge: independent ambulation Overall status at discharge: patient is back to baseline Time Attestation Discharge Coordination Time (in mins): Thirty-five Quality: Safe Use of Opioids Does Pt have an Active Cancer Diagnosis on the Problem List?: No Quality: Stroke Does the patient have a stroke diagnosis?: No Physical Exam Exam: Exam: Middle-aged female lying in bed in no distress Neck supple, no JVD Regular rate and rhythm, S1-S2 heard Wheezing improved Abdomen soft nontender, no guarding, no rigidity Patient is awake, alert and oriented to self, place, time and person ; no focal motor deficit Psych: Normal mood No pedal edema Vital Signs: Vital Signs: Last Vital Signs Temp 98.3 F 04/14/25 07:35 Pulse 102 H 04/14/25 08:27 Resp 18 04/14/25 08:27 BP 140/70 H 04/14/25 07:35 Pulse Ox 93 04/14/25 07:35 O2 Del Method Room Air 04/14/25 07:35 O2 Flow Rate 4 04/13/25 07:15 BMI result Body Mass Index 39.9 DS: Data Data Completed and Pending Labs on day of discharge: Laboratory Results - last 24 hr 04/14/25 05:33 WBC 9.8 RBC 4.14 L Hgb 13.0 Hct 38.8 MCV 93.7 MCH 31.4 MCHC 33.5 RDW 13.4 Plt Count 207 MPV 10.6 Immature Gran % (Auto) 0.6 H Neut % (Auto) 88.7 H Lymph % (Auto) 4.4 L [place] % (Auto) 6.2 Eos % (Auto) 0.0 Baso % (Auto) 0.1 Lymph # (Auto) 0.4 L [place] # (Auto) 0.6 Eos # (Auto) 0.0 Baso # (Auto) 0.0 Abs Immat Gran (auto) 0.06 H Absolute Neuts (auto) 8.7 H Absolute Nucleated RBC 0.000 Nucleated RBC % (auto) 0.0 Sodium 140 Potassium 3.9 Chloride 102 Carbon Dioxide 28 Anion Gap 14 BUN 13 Creatinine 0.58 Estim Creat Clear Calc 128.6 Estimated GFR > 60 Random Glucose 321 H Calcium 8.9 D Magnesium 1.9 Total Bilirubin 0.5 Direct Bilirubin 0.2 AST 35 H ALT 37 H Alkaline Phosphatase 106 Total Protein 6.6 Albumin 4.1 Preliminary micro results at discharge 04/12/25 22:01 Blood Culture - Preliminary Blood - Venous No growth after 24 hours. 04/12/25 21:35 Blood Culture - Preliminary Blood - Venous No growth after 24 hours. Imaging Chest x-ray: Radiologist's impression: ITS Impressions Pulmonary Perfusion Imaging 04/13/25 08:53 IMPRESSION: Very low probability for pulmonary emboli. Electronically signed by: Omar Leigh MD 04/13/2025 11:05 AM EDT RP Discharge Plan Discharge Anticipated Discharge Date/Time: 04/14/25 08:21 Patient Disposition: Home, Self-Care Discharge Diagnosis: Acute hypoxemic respiratory failure secondary to COPD exacerbation Referrals: Physician,Unknown J [Primary Care Provider, Medical] - 1 Week Discharge Medications: New prednisone 20 mg tablet 40 mg PO DAILY Qty: 5 0RF Continued atorvastatin 80 mg tablet 80 mg PO DAILY Patient Comments: stated the last time I took my meds was around 5 or 6 days ago. I don't have access to my car, it's in the shop right now . naltrexone 50 mg tablet 50 mg PO DAILY Patient Comments: stated the last time I took my meds was around 5 or 6 days ago. I don't have access to my car, it's in the shop right now . aspirin 81 mg tablet,delayed release (DR/EC) 81 mg PO DAILY Patient Comments: stated the last time I took my meds was around 5 or 6 days ago. I don't have access to my car, it's in the shop right now . furosemide 20 mg tablet 20 mg PO DAILY Patient Comments: stated the last time I took my meds was around 5 or 6 days ago. I don't have access to my car, it's in the shop right now . lorazepam 1 mg tablet 1 mg PO BID Patient Comments: stated the last time I took my meds was around 5 or 6 days ago. I don't have access to my car, it's in the shop right now . Combivent Respimat 20-100 mcg/actuation mist 1 puff inhalation Q8H PRN (Reason: Shortness Of Breath) Patient Comments: stated the last time I took my meds was around 5 or 6 days ago. I don't have access to my car, it's in the shop right now . gabapentin 800 mg Tablet 800 mg PO TID clonidine HCl 0.2 mg Tablet 0.2 mg PO BEDTIME amlodipine 10 mg Tablet 10 mg PO DAILY diphenhydramine HCl [Benadryl] 25 mg Capsule 25 mg PO BEDTIME PRN (Reason: stuffy) doxylamine succinate 25 mg Tablet 25 mg PO BEDTIME PRN (Reason: Sleep) albuterol sulfate 90 mcg/actuation Hfa Aerosol Inhaler 2 puff INHALATION Q6H PRN (Reason: Shortness Of Breath Or Wheezing) cyclobenzaprine 5 mg Tablet 5 mg PO BID PRN (Reason: Fibromyalgia) cholecalciferol (vitamin D3) [Vitamin D3] 50 mcg (2,000 unit) Tablet 50 mcg PO DAILY magnesium oxide 420 mg Tablet 420 mg PO DAILY thiamine HCl (vitamin B1) 100 mg Tablet 100 mg PO DAILY magnesium hydroxide [Milk of Magnesia] 400 mg/5 mL Suspension 30 ml PO BID PRN (Reason: Constipation) omeprazole 20 mg Capsule,Delayed Release(Dr/Ec) 20 mg PO DAILY@0630 multivitamin with minerals Tablet 1 tab PO DAILY fluticasone propionate 50 mcg/actuation [place],Suspension 1 spray INTRANASAL DAILY PRN (Reason: Allergy Symptoms) Rx Instructions: administer into each nostril metronidazole 0.75 % Gel 1 appl TOPICAL DAILY PRN (Reason: Acne/Rosacea) cyanocobalamin (vitamin B-12) [Vitamin B-12] 500 mcg Tablet 500 mcg PO DAILY folic acid 1 mg Tablet 1 mg PO DAILY oxybutynin chloride 5 mg Tablet Extended Release 24hr 5 mg PO BEDTIME Discontinued naproxen 500 mg tablet 500 mg PO BID Patient Comments: stated the last time I took my meds was around 5 or 6 days ago. I don't have access to my car, it's in the shop right now . Discharge Orders: Discharge Order (Routine); Ordered 04/14/25 Ordered By: Crystal Mullins Diet: Regular diet Activity on Discharge: As tolerated Stand Alone Forms: Patient Portal Discharge page Print Language: [place] Care Plan Goals: Follow-up with PCP within 1 week Follow-up with psychiatry Health Concerns: Chronic obstructive pulmonary disease Mood disorder Alcohol use disorder Plan of Treatment: Prednisone 40 mg daily x5 days Outpatient psychiatry evaluation for titration of home mood stabilizers Alcohol abstinence Assessment: As above
--- NOTE | 2025-04-14 09:32 | MHC.CM.PN ---
Patient is discharged today. She will return to the [facility] shuttle.
[2025-04-14 11:52] VITALS: PULSE 102; RESP 18; O2SAT 93
== END 2025-04-14 12:52 | disposition home or self-care (01) | DRG 871 ==
LOC: HO.ED 04-13 00:02 → HO.EDOVER 04-13 00:08 → HO.S3 04-13 13:12
PROVIDERS: Physician Assistant Medical; Admitting Provider Physician Assistant; Emergency Provider Emergency Medicine; Visit Provider Student in an Organized Health Care Education/Training Program
DX: A41.9 Sepsis, unspecified organism (principal); J96.01 Acute respiratory failure with hypoxia; J44.1 Chronic obstructive pulmonary disease with (acute) exacerbation; E87.21 Acute metabolic acidosis; Z68.41 Body mass index [BMI] 40.0-44.9, adult; E51.9 Thiamine deficiency, unspecified; Y90.7 Blood alcohol level of 200-239 mg/100 ml; F10.10 Alcohol abuse, uncomplicated; F41.0 Panic disorder [episodic paroxysmal anxiety]; F17.210 Nicotine dependence, cigarettes, uncomplicated; T46.5X6A Underdosing of other antihypertensive drugs, initial encounter; Z71.6 Tobacco abuse counseling; E66.01 Morbid (severe) obesity due to excess calories; Z20.822 Contact with and (suspected) exposure to COVID-19; Z79.82 Long term (current) use of aspirin; Z79.52 Long term (current) use of systemic steroids; Z79.899 Other long term (current) drug therapy
CPT/HCPCS: 36415; 71045; 78580; 80048; 80076; 80307; 83605; 83735; 83880; 84484; 85025; 85379; 87040; 87637; 93005; 94640; 99285; A9540; J0456; J0696; J1271; J1650; J1920; J2560; J2919; J3411; J3475; J7120; S9485

== ENCOUNTER → 2025-04-12 19:08 | Outpatient (BNV) | payer MEDICARE, MEDICAID, SELFPAY | PROVIDERS: Admitting Provider Physician Assistant; Emergency Provider Emergency Medicine; Visit Provider Internal Medicine Cardiovascular Disease | DX: R00.1 Bradycardia, unspecified (principal) | CPT/HCPCS: 93010 ==

== ENCOUNTER → 2025-04-12 20:37 | Outpatient (BNV) | payer MEDICARE, MEDICAID, SELFPAY | PROVIDERS: Emergency Provider Emergency Medicine; Visit Provider Radiology Neuroradiology | DX: R06.02 Shortness of breath (principal) | CPT/HCPCS: 71045 ==

== ENCOUNTER 2025-04-13 00:06 | Outpatient (BNV) | payer MEDICARE, MEDICAID, SELFPAY | END 2025-04-13 08:53 | PROVIDERS: Admitting Provider Physician Assistant; Emergency Provider Emergency Medicine; Visit Provider Radiology Diagnostic Radiology | DX: R79.89 Other specified abnormal findings of blood chemistry (principal) | CPT/HCPCS: 78580 ==

== ENCOUNTER → 2025-04-13 00:06 | Outpatient (BNV) | payer MEDICARE, MEDICAID, SELFPAY | PROVIDERS: Admitting Provider Physician Assistant; Emergency Provider Emergency Medicine; Visit Provider Physician Assistant | DX: J96.01 Acute respiratory failure with hypoxia (principal); A41.9 Sepsis, unspecified organism; J44.1 Chronic obstructive pulmonary disease with (acute) exacerbation; E87.21 Acute metabolic acidosis; R79.89 Other specified abnormal findings of blood chemistry; F10.90 Alcohol use, unspecified, uncomplicated; F41.9 Anxiety disorder, unspecified; E66.01 Morbid (severe) obesity due to excess calories; Z72.0 Tobacco use | CPT/HCPCS: 99223; 99499 ==

== ENCOUNTER → 2025-04-13 00:06 | Outpatient (BNV) | payer MEDICARE, MEDICAID, SELFPAY | PROVIDERS: Admitting Provider Physician Assistant; Emergency Provider Emergency Medicine; Visit Provider Nurse Practitioner Psychiatric/Mental Health | DX: F10.90 Alcohol use, unspecified, uncomplicated (principal) | CPT/HCPCS: 99221 ==